=== PATIENT | female | born 1965 | race Caucasian/White ===

== ENCOUNTER 2017-09-11 08:30 | Outpatient (RCR) | payer OTHER, SELFPAY ==
--- NOTE | 2017-08-20 14:26 | HP.OTEVAL ---
Patient's Visit Information ROBEL SANDOVAL is a 52 year old F, referred to Occupational Therapy by BARBARA Araiza.MARBELLA, with a diagnosis of Radius Fx. Date of Evaluation: 08/20/17 Occupational Therapist: Virginia Nam - Subjective Subjective: Pt., Robel Chen, noted that she fell sometime in June prior to while placing glass bulb ornaments away. She noted she put socks under ladder and it slipped from under her. She noted ladder 6 ft and fell head first to hardwood floor. Notes mild concussion from fall and breaking L distal radius. Most is pain is over scar is itching and gets very irritated touching anything. 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 - Pain Left Wrist 3 Pain Intensity Range: 2, 8 - Objective Objective/Observation: Limited ROM and strength. Scar closed but red and tender. Heat to scar appears same as R nonaffected hand. ROM and strength limited at this time. Concerns: Please send over surgical report. Pt. provided picture of x-ray. - ROM Forearm: supination R 0-79, L 0-30 Wrist: flex R 0-84, L 0-46; ext R 0-55, L 0-46 CMC: WFL MP: WFL PIP: WFL DIP: WFL ROM Comments: Rad dev R 0-15, L 0-7. ulnar dev R 0-30, L 0-19 - Strength Sharepoint Manager: R 86, L 34 Lateral Pinch: R 13, L 12 Tripod Pinch: R 14, L 4 Tip-to-Tip Pinch: R 7, L 4 - Edema Wrist: slight edema around ulna - Sensation Sensation Comments: Intact nd WFL; denies numbness and tingling at this time. - DASH-Disabilities of Arm, Shoulder& Hand DASH Sum: 97 - Goals Goal:: Robel Chen to increase B UE strength to 4+/5 for B UE to promote increased UE strength and endurance to return to PLOF. Goal:: Robel chen to increased active supination of L affected hand by 30 degrees to promote increased ROM and strength to be able to manipulate self-care items for hair care as wella s IADLS of taking and holding change 4/5 trials 80-% of the time by d/c. Goal:: Robel Chen to consistently rate pain in L wrist at 0-1/10 pain when completing fx tasks to promote increased (I) and participation with ADl/IADLs by d/c. Goal:: Robel Chen to increase B neonatal nurse practitioner by 30-35 lbs to promote increased neonatal nurse practitioner strength and endurance to be able to complete ADL/IADLs by time of d/c. Goal:: Robel Chen to increased L affected wrist flex/ext to that of R nonaffected hand to promote increased (i) and ability to returnt o PLOF by d/c. Goal:: Robel Chen to be mod I to complete jt protection strategies to promote increasing ability to complete ADL/AIDls by d/c. Goal:: Robel Chen to be (I) to return to all ADl/IADLs to promote increased (I) and ability to return to PLOF with L affected hand and wrist by d/c. - Rehabilitation General Assessment: Pt., Robel Chen, gutierrezvd and noted inital injury occured in June. She noted that she has since had ORIF to L wrist. She is R hand dominant and has compensated but is having increased difficulty completing B hand coordination and manipulation tasks. She noted increased pain in all fx mvmts. She exhibits decreased ROM, strength, and return to PLOF. Rehabilitation Potential: Good - Anticipated Interventions Anticipated Interventions: A/AAROM/PROM, Strengthening, Edema Control, Modalities, Orthoses, Joint Protection/Energy Conservation, Fine Motor Coord/Berto, ADL Training, Caregiver Training, Home Program - Visit Plan Frequency: 2x /Week Duration: 4-6 Weeks General Plan: OT to work on ROM, strength, desensitization techniques, and returning to all ADL/IADLs by d/c. Modalities (no US) to be used as needed to manage pain and promote ROM to ethylbenzene converter helper in returning to PLOF.Edema management techniques as needed. TEXT: Thank you for the opportunity to evaluate your patient. For Medicare and Medicare HMO plans, please review the plan of care and approve it. It will need to be FAXED BACK to us at [phone] for Medicare purposes. Please let me know if there are questions or concerns regarding this plan of care. Physician Signature: Date:
--- NOTE | 2018-04-01 09:58 | HP.OTDCNRP_ITS ---
HP - Discharge Summary - Patient Information ROBEL SANDOVAL was seen in my office for initial evaluation on 08/20/17. The following Plan of Care was established for this patient: Initial Frequency: 2x /Week Initial Duration: 4-6 Weeks Plan: continue POC and potentially start fluidotherapy machine to work on decreasing sensitivity as well as HEP for desenitization protocol. Gave scar gel to wear even without brace on. - Anticipated Interventions Anticipated Interventions: A/AAROM/PROM, Strengthening, Edema Control, Modalities, Orthoses, Joint Protection/Energy Conservation, Fine Motor Coord/ Berto, ADL Training, Caregiver Training, Home Program This patient was last seen in our office 09/11/17. Pertinent comments regarding their Occupational therapy will appear below: last time seen in clinic 09/11/17. Last set of measurements are as follows: ROM pre- traction and MT is as follows: L wrist flexion 0-52, extension 0-45; radial dev 0-14, ulnar dev 0-19; supination 0-35. ROM post MT and traction is as follows: flexion 0-61, ext 0-46, radial dev 0-13 , ulnar 0-14, supination 0-42. Increased crepitus with traction at ulna due to where fx was located. Pain increased from 3 to 5/10 after scar massage. She was to follow up for further sessions and has not returned. She will be d/c' d at this time. At this point I will be discontinuing this patient from occupational therapy. I would be happy to see this patient again in the future if found appropriate by the physician. Thank you! Virginia Nam
== END 2017-09-11 19:00 | disposition home or self-care (01) ==
LOC: OT 08:30
PROVIDERS: Family Provider Internal Medicine; PCP Internal Medicine; Visit Provider Physician Assistant
DX: S52.552D Other extraarticular fracture of lower end of left radius, subsequent encounter for closed fracture with routine healing (principal); S52.572D Other intraarticular fracture of lower end of left radius, subsequent encounter for closed fracture with routine healing
CPT/HCPCS: 97110; 97140; 97166; 97530

== ENCOUNTER 2019-08-16 14:02 | Observation (INO) | payer OTHER, SELFPAY ==
[2019-08-16] VITALS (11 sets, daily range): BP systolic 83–141; BP diastolic 44–92; PULSE 16–66; RESP 16–56; TEMP 36.7–37; O2SAT 94–100; BMI 25.0; BMI 24.1
--- NOTE | 2019-08-16 14:28 | RAD_ITS ---
STUDY: X-RAY CHEST REASON FOR EXAM: Female, 54 years old. SHORTNESS OF BREATH, DIZZINESS, HEADACHE STARTED TODAY. HISTORY OF ASTHMA. TECHNIQUE: PA and lateral views of the chest. COMPARISON: Comparison is made with prior examination dated June 29, 2017. FINDINGS: EKG electrodes are seen. Hyperinflation. The lungs are clear. There is no demonstrated pleural abnormality. Normal size heart. Normal mediastinum and lobo. Normal visualized pulmonary arteries. Normal visualized aortic arch and descending thoracic aorta. Normal visualized thoracic spine. Normal visualized ribs, clavicles, and shoulders. There is no demonstrated abnormality of the visualized soft tissue structures of the upper abdomen. RAD/Chest PA and Lateral IMPRESSION: Normal x-ray examination of the chest. Electronically Signed: Mk Valles, at 15:21 EST , Service support ,
--- NOTE | 2019-08-16 14:28 | EKG12_ITS ---
Test Reason : CP Blood Pressure : / mmHG Vent. Rate : 055 BPM Atrial Rate : 055 BPM P-R Int : 150 ms QRS Dur : 084 ms QT Int : 410 ms P-R-T Axes : 015 066 059 degrees QTc Int : 392 ms Sinus bradycardia Otherwise normal ECG Confirmed by GEORGE TORRES, LINA ([id number]), order editor CATRINA ANN ([id number]) on 08/18/2019 1:47:21 PM Referred By: ELOISA/ Confirmed By:LINA VAZQUEZ MD
[2019-08-16 14:47] LABS: Absolute Lymphocyte Count 1.48 X10^3/uL (0.83-4.51); Absolute Neutrophil Count 4.9 X10^3/uL (2.0-7.7); Basophil# 0.05 X10^3/uL; Basophil% 0.7 % (0-1); Eosinophil# 0.13 X10^3/uL; Eosinophils% 1.8 % (0-5); Hematocrit 40.3 % (37-47); Hemoglobin 13.7 g/dL (12.0-15.0); Lymphocyte # 1.48 X10^3/ul (4.0); Lymphocyte % 20.6 % (19-41); Mean Corpuscular Hgb 31.4 pg (27.0-32.0); Mean Corpuscular Volume 92.4 fL (81-99); Mean Platelet Vol. 10.2 fl (6.2-12.0); Monocyte# 0.61 X10^3/uL; Monocyte% 8.5 % (0-10); NRBC Flagged by Analyzer 0 % (0-5); Neutrophil # 4.89 X10^3/uL (2.7-7.7); Neutrophil % 68.1 % (47-70); Platelet Count 231 K/mm3 (150-450); RBC Distribution Width CV 11.9 % (11.6-14.6); RBC Distribution Width SD 40.2 fl (35.1-43.9); Red Blood Count 4.36 M/mm3 (4.2-5.4); White Blood Count 7.2 K/mm3 (4.4-11.0)
[2019-08-16 15:00] LABS: Anion Gap 5 (5-15); BUN 15 mg/dL (7-18); BUN/Creat Ratio 14.4 RATIO (10-20); Calcium,Total 9.5 mg/dL (8.5-10.1); Chloride 107 mmol/L (98-107); Creatinine, Serum 1.04 mg/dL (0.55-1.02); EST Glomerular Filtration Rate 58 mL/min (>60); Est Glom Filt Rate - Afr Amer 71 mL/min (>60); Estimated Creatinine Clearance 60.93 ml/min; Glucose 110 mg/dL (74-106); Potassium 3.7 mmol/L (3.5-5.1); Sodium Level 139 mmol/L (136-145)
[2019-08-16] MEDS: Aspirin 81 MG TAB.CHEW 324 MG PO (15:13)
--- NOTE | 2019-08-16 15:32 | ED.VIS.CHEST ---
History of Present Illness Chief Complaint: Chest Pain Informant: Patient Narrative: Patient presenting for evaluation secondary to chest pain. Patient is very healthy, very physically active, but states over the course of the last 2 days she has been dealing with chest pain shortness of breath. Patient states that yesterday she was working out on the treadmill, went to a normal speed on the treadmill but then became extremely fatigued very early and was required to slow her speed to walk. Patient states that she was ice skating today, she is a professional senior web services developer. Patient apparently stated that anytime she started exerting herself she would become extremely short of breath to the point where she felt like she was not getting enough air, lightheaded, and nauseous. Patient did state that she had some chest heaviness associated with this. Patient denies any history of hypertension diabetes hyperlipidemia or smoking. She denies any DVT or PE risk factors. She has had a stress test but it was in the distant past. Review of systems otherwise negative. Past Medical History - Allergies and Home Meds Allergies/Adverse Reactions: Allergies Sulfa (Sulfonamide Antibiotics) Allergy (Verified 07/04/17 13:56) Unknown tetracycline Allergy (Verified 07/04/17 13:56) Unknown Primary Care Physician: Jody Perez MD [Primary Care Provider] - Past Medical History: None Smoking Status: Never smoker Review of Systems All systems negative except as indicated General: Denies: Chills, Fever, Sweats Eyes: Denies: Visual changes - bilaterally, Diplopia ENT: Denies: Rhinorrhea, Sore throat Cardiovascular: Reports: Chest pain Respiratory: Denies: Dyspnea, Cough, Dyspnea on exertion Gastrointestinal: Denies: Abdominal pain, Nausea, Vomiting, Diarrhea, Melena, Hematochezia Genitourinary: Denies: Dysuria, Hematuria, Frequency Musculoskeletal: Denies: Back pain, Extremity Pain Skin: Denies: Rash, Wounds Neurological: Denies: Headache, Weakness, Numbness Physical Exam Vital Signs/Narrative: Vital Signs Temp Pulse Resp BP Pulse Ox 08/16/19 15:06 58 L 18 83/44 L 100 08/16/19 14:03 98.3 F 62 18 141/88 H 96 Inital Vital Signs reviewed: Yes General: Well nourished, Well developed, No Acute Distress Head: Normocephalic, Atraumatic Eyes: Perrl, EOMI ENT: Moist mucous membranes, No rhinorrhea Neck: Supple, Nontender Cardiovascular: Regular rate, Regular rhythm, No murmurs Respiratory: No distress, CTA bilaterally, Chest nontender Abdomen: Soft, Nontender, Nondistended, Normal bowel sounds Back: Nontender, Normal Inspection Extremities: Nontender, No edema Skin: Normal color, No rash Neurological: Alert, Oriented x3, Cranial nerves II-XII grossly intact, Normal Strength, Normal Sensation Psychological: Normal affect, Normal Mood Diagnostic/Tx/Re-eval - EKG Initial EKG Interpretation: - - Sinus rhythm of [address] segments normal T waves normal CO and QTc intervals no evidence of acute ischemia or arrhythmia - Medical Decision Making Patient presenting for evaluation secondary to chest pain and shortness of breath. Patient's history sounds very concerning for angina, work-up was obtained. CBC chemistry and troponin were unremarkable.. Lateral chest x-ray by my personal review as well as radiology are unremarkable. EKG shows no ischemic signs. Even though the patient is relatively low risk, she is 54 years old and has a story that is very classically concerning for angina. I believe she requires admission. I will admit the patient under the hospitalist. ED Disposition - Plan for ED Patient: Disposition: [facility] Diagnosis: Exertional angina
--- NOTE | 2019-08-16 15:58 | NURSING ---
117 BLANCA OBS ANGINA
--- NOTE | 2019-08-16 16:19 | PCM.HP.STD ---
Problem List (1) Chest tightness Status: Acute (2) Exercise-induced asthma Status: Chronic History of Present Illness Date of Admission: 08/16/19 Chief Complaint: Chest tightness today The patient is a 54 year old F with history of chronic stable exercise-induced asthma on Singulair came to ER with complaint of chest tightness while skiing. Yesterday patient was on treadmill and she felt fatigue, mild short of breath and tired. Today while skiing she felt chest tightness from right to left along with feeling of lump in throat along with constriction along with dizziness, shortness of breath and sweating. She also felt nauseous and vomited once. She had one loose bowel movement but was not totally liquid watery in consistency. She denies history of coronary artery disease or heart related disorder in first-degree family active. In ED, vital signs normal, heart rate 60/min, blood pressure 134/85. EKG shows sinus bradycardia 55 bpm. No significant change from previous EKG of July 07, 2017. Chest x-ray reported normal. Past Medical History Past Medical History (Chronic Problems): Chronic Problems Exercise-induced asthma (Chronic) Allergies Sulfa (Sulfonamide Antibiotics) Allergy (Verified 07/04/17 13:56) Unknown tetracycline Allergy (Verified 07/04/17 13:56) Unknown Home Medications: Ambulatory Orders Medication Instructions Recorded Escitalopram Oxalate [Lexapro] 20 mg PO QHS 08/16/19 Montelukast [Singulair] 10 mg PO QHS 08/16/19 Smoking Status: Never smoker - *Family History Paternal History Items: No pertinent history Review of Systems Constitutional: Reports: Malaise, Weakness. Denies: Chills, Fever, Weight Change HEENT: Denies: Head Aches, Sinus Congestion, Sinus Drainage Cardiovascular: Reports: Chest Pressure, Chest Tightness. Denies: Chest Pain, Palpitations Respiratory: Reports: Shortness of breath upon exertion. Denies: Cough, Shortness of breath at rest, Sputum production Gastrointestinal: Denies: Abdominal Pain, Nausea, Vomiting Genitourinary: Denies: Dysuria Musculoskeletal: Denies: Joint Pain, Joint Tenderness Skin: Denies: Rash, Wounds Neurological: Denies: Numbness, Tingling, Focal weakness Psychiatric: Denies: Anxiety, Depression, Homicidal Ideations, Suicidal Ideations Hematologic/ Lymphatic: Denies: Easy Bruising, Easy Bleeding VTE Information - Inpt Only VTE Present on Admission: No VTE Mechan Device Prophylaxis: None VTE Pharm Prophylaxis ordered?: Yes Patient Problems: Active and Suspected Problems Exertional angina (Acute) Chest tightness (Acute) - Physical Exam Vitals/I&O's: Vital Signs Temp Pulse Resp BP Pulse Ox 98.3 F 64 16 138/92 H 100 08/16/19 14:03 08/16/19 16:02 08/16/19 16:02 08/16/19 16:02 08/16/19 16:02 Oxygen Delivery Method Room Air Weight: 164 lb 14.492 oz Body Mass Index (BMI) 25.0 General: Alert, Oriented x3, Cooperative HEENT: Atraumatic, PERRLA, EOMI, Normocephalic Oral: No Gingival or Mucosal Lesions/ Ulcerations, Dry Mucosa Neck: Supple, No JVD, Negative Carotid Bruits Lungs: Clear to auscultation, Normal air movement, No rhonchi, No wheeze, No rales Cardiovascular: Regular rate, Regular Rhythm, Normal S1, Normal S2, No murmurs Abdomen: Bowel Sounds Present, Soft, Non Tender, Non-Distended Extremities: No edema, Capillary Refill Less than 3 Seconds Skin: No rashes, No breakdown Musculoskeletal: No Tenderness to Palpation of Joints or Extremities Lymphatic: No Cervical, Supraclavicular, or Inguinal Adenopathy Neurological: Cranial nerves II-XII grossly intact, Deep Tendon Reflexes 2+/4 and Symmetrical, Neuro grossly intact Psych/Mental Status: Normal Affect, Appropriate Laboratory Results 08/16/19 14:15: WBC 7.2, RBC 4.36, Hgb 13.7, Hct 40.3, MCV 92.4, MCH 31.4, MCHC 34.0, RDW Std Deviation 40.2, RDW Coeff of Arjun 11.9, Plt Count 231, MPV 10.2, Immature Gran % (Auto) 0.300, Neut % (Auto) 68.1, Lymph % (Auto) 20.6, [place] % (Auto) 8.5, Eos % (Auto) 1.8, Baso % (Auto) 0.7, Absolute Neuts (auto) 4.9, Absolute Lymphs (auto) 1.48, Nucleated RBC % 0 08/16/19 14:15: Sodium 139, Potassium 3.7, Chloride 107, Carbon Dioxide 27.0, Anion Gap 5, BUN 15, Creatinine 1.04 H, Estim Creat Clear Calc 60.93, Est GFR (MDRD) Af Amer 71, Est GFR (MDRD) Non-Af 58 L, BUN/Creatinine Ratio 14.4, Glucose 110 H, Calcium 9.5, Troponin I < 0.015 Assessment/Plan All Active Problems Exertional angina (Acute) Chest tightness (Acute) The patient is a 54 year old F with history of chronic stable exercise-induced asthma on Singulair came to ER with complaint of chest tightness while skiing. She also felt nauseous and vomited once. She had one loose bowel movement but was not totally liquid watery in consistency. In ED, vital signs normal, heart rate 60/min, blood pressure 134/85. 1. Atypical chest pain/tightness rule out acute coronary syndrome: Possible differential is exercised induced asthma. EKG independently reviewed and shows sinus bradycardia 55 bpm. No significant change from previous EKG of July 07, 2017. Chest x-ray independently reviewed and looks normal. Patient is being admitted in PCU. Serial troponin and repeat EKG. If troponins are negative, treadmill nuclear stress tomorrow morning. If troponins become elevated will need cardiology consult and possible heart cath and this was explained to the patient. 2. Exercise-induced asthma: Patient does not have wheezing but feeling of lump in throat and constriction which may be atypical manifestation of asthma. Patient also feels nervous/weird sensation with albuterol therefore put on ipratropium every 4 hours. Continue Singulair. 3. Mild dehydration: On normal saline 100 mL/h, total of 2 L. Mild anxiety: On escitalopram; continued. 4. DVT prophylaxis, moderate risk: On Lovenox 40 mg subcu daily. Laboratory Results 08/16/19 14:15: WBC 7.2, RBC 4.36, Hgb 13.7, Hct 40.3, MCV 92.4, MCH 31.4, MCHC 34.0, RDW Std Deviation 40.2, RDW Coeff of Arjun 11.9, Plt Count 231, MPV 10.2, Immature Gran % (Auto) 0.300, Neut % (Auto) 68.1, Lymph % (Auto) 20.6, [place] % (Auto) 8.5, Eos % (Auto) 1.8, Baso % (Auto) 0.7, Absolute Neuts (auto) 4.9, Absolute Lymphs (auto) 1.48, Nucleated RBC % 0 08/16/19 14:15: Sodium 139, Potassium 3.7, Chloride 107, Carbon Dioxide 27.0, Anion Gap 5, BUN 15, Creatinine 1.04 H, Estim Creat Clear Calc 60.93, Est GFR (MDRD) Af Amer 71, Est GFR (MDRD) Non-Af 58 L, BUN/Creatinine Ratio 14.4, Glucose 110 H, Calcium 9.5, Troponin I < 0.015 Clinical Impression(s) from Imaging Studies Chest X-Ray 08/16/19 14:28 IMPRESSION: Normal x-ray examination of the chest. Code Visit OBSV E&M: 52971 Initial observation care L3
--- NOTE | 2019-08-16 16:45 | EKG12_ITS ---
Test Reason : Blood Pressure : / mmHG Vent. Rate : 050 BPM Atrial Rate : 050 BPM P-R Int : 176 ms QRS Dur : 086 ms QT Int : 452 ms P-R-T Axes : 062 040 045 degrees QTc Int : 412 ms Sinus bradycardia Otherwise normal ECG When compared with ECG of 16-AUG-2019 17:02, MANUAL COMPARISON REQUIRED, DATA IS UNCONFIRMED Confirmed by KAL STERLING ([id number]), publication editor KHALIDA RODRIGUEZ ([id number]) on 08/19/2019 10:46:30 AM Referred By: Confirmed By:KAL STERLING
[2019-08-16] MEDS: 0.9% Saline Lock 10 ML Syringe IV (17:34)
[2019-08-16] MEDS: 0.9% Normal Saline 1,000 ML 100 ML IV (17:34)
[2019-08-16] MEDS: Ipratropium 0.5 MG/2.5 ML SOLUTION INHALATION (19:45)
[2019-08-16] MEDS: Acetaminophen 325 MG Tablet 650 MG PO (19:46)
[2019-08-16] MEDS: oxyCODONE 5 MG Tablet PO (21:29)
[2019-08-16] MEDS: Montelukast 10 MG Tablet PO (21:29)
[2019-08-16] MEDS: Escitalopram Oxalate 20 MG Tablet PO (21:29)
[2019-08-17 02:59] VITALS: PULSE 47
[2019-08-17 03:30] VITALS: BP 114/54; PULSE 55; RESP 14; TEMP 36.8; O2SAT 96
[2019-08-17] MEDS: 0.9% Normal Saline 1,000 ML 100 ML IV (03:33)
[2019-08-17] MEDS: Aspirin E.C. 81 MG Tablet PO (05:04)
[2019-08-17 05:06] VITALS: BP 101/56; PULSE 50; RESP 14; TEMP 36.9
--- NOTE | 2019-08-17 05:55 | EKG12_ITS ---
Test Reason : Blood Pressure : / mmHG Vent. Rate : 060 BPM Atrial Rate : 060 BPM P-R Int : 168 ms QRS Dur : 078 ms QT Int : 414 ms P-R-T Axes : 007 019 040 degrees QTc Int : 414 ms Normal sinus rhythm Normal ECG When compared with ECG of 07-JUL-2017 07:03, No significant change was found Confirmed by KAL STERLING ([id number]), primer expeditor and drier KHALIDA RODRIGUEZ ([id number]) on 08/19/2019 10:47:18 AM Referred By: BLANCA Confirmed By:KAL STERLING
[2019-08-17 06:55] LABS: Cholesterol 195 mg/dL (200); High Density Lipoprotein 61 mg/dL; Triglycerides 102 mg/dL; Very Low Density Lipoprotein 20 mg/dL (5-40)
[2019-08-17 07:00] VITALS: PULSE 50
[2019-08-17 09:55] VITALS: BP 111/68; PULSE 63; RESP 16; TEMP 36.7; O2SAT 96
--- NOTE | 2019-08-17 11:36 | STRESSREP ---
Stress Test Report Date: 08-17-2019 Procedure: Exercise tolerance test/imaging study Indications: Chest pain; shortness of breath/dyspnea Consent: Per the patient Procedure: The patient exercised on a Jaziel protocol for 10 minutes and 45 seconds completing Stage III and 1 minute and 45 seconds of Stage IV achieving a peak heart rate of 153 bpm (93 % predicted maximal heart rate) with a peak blood pressure 138/82 mmHg and a peak MET capacity of 12 METs. The baseline ECG demonstrated sinus bradycardia. The peak exercise ECG demonstrated utba-bo-[id number] nonspecific ST segment variability. There were no cardiac dysrhythmias pretest, during exercise, or recovery. The functional capacity was considered good. There was no complaint of chest discomfort during exercise or recovery. The examination was discontinued secondary to fatigue. Impression: 1. Technically adequate (percent predicted maximal heart rate greater than 85%) exercise tolerance test 2. Peak exercise ECG with quli-hw-abah nonspecific ST segment variability 3. There were no cardiac dysrhythmias pretest, during exercise, or recovery 4. Nuclear images pending Myocardial perfusion imaging study: Technique: The patient was injected with 11.0 mCi of technetium 99m Cardiolite and subsequently rest SPECT Cardiolite nuclear imaging was obtained in the horizontal long, vertical long, and short axis views. The patient exercised on a Jaziel protocol for 10 minutes and 45 seconds completing Stage III and 1 minute and 45 seconds of Stage IV achieving a peak heart rate of 153 bpm (93 % predicted maximal heart rate) with a peak blood pressure 138/82 mmHg and a peak MET capacity of 12 METs. The patient was injected with 34.0 mCi of technetium 99m Cardiolite and subsequently stress SPECT Cardiolite nuclear imaging was obtained in the horizontal long, vertical long, and short axis views. A gated Cardiolite study at peak stress was obtained. Interpretation: Rest and stress SPECT Cardiolite nuclear imaging status post realignment, normalization, and attenuation correction, demonstrates the appearance of relative uniform tracer uptake and myocardial perfusion appearing within normal limits. There is end systolic thickening and brightening. The gated Cardiolite study demonstrates myocardial thickening and inward wall motion. The reported LVEF is 75 %. Impression: 1. Rest and stress SPECT Cardiolite nuclear imaging demonstrate relative uniform tracer uptake and myocardial perfusion appearing within normal limits. 2. The gated Cardiolite study reports an LVEF of 75 %. This note was generated with [employer] guard unlimited software. It may contain incorrect words, spelling, and punctuation that were not noted in checking the note before signing.
--- NOTE | 2019-08-17 13:21 | DCINST_ITS ---
- Discharge Diagnoses Current Active Problems: Current Active and Chronic Problems Exertional angina (Acute) Chest tightness (Acute) Exercise-induced asthma (Chronic) You will use the following diet at home:: Cardiac Your food should be the consistency of: Regular Your liquids should be the consistency of: Regular/Thin Discharge Activity: Return to Normal Activity Weight Bearing Status: Weight bearing as tolerated Call your doctor if you observe: Fever of 101 or Higher, Shortness of breath, Chest pain Instructions: Angina, CHEST PAIN, NonCardiac, Understanding Asthma, Understanding Asthma Triggers Allergies/Adverse Reactions: Allergies Sulfa (Sulfonamide Antibiotics) Allergy (Verified 08/16/19 17:27) Unknown family history of hives tetracycline Allergy (Verified 08/16/19 17:27) Unknown family history of Az's Benedicto's syndrome Medications to take at Discharge Escitalopram Oxalate [Lexapro] 20 mg PO QHS 08/16/19 Montelukast [Singulair] 10 mg PO QHS 08/16/19 Primary Care Physician: Jody Perez MD [Primary Care Provider] - Please follow up with your Primary Care Physician in: one week Test Results: Test results from this visit will be discussed in further detail at your follow- up appointment, if applicable. Please Follow Up With: Jerry Chambers DO When: 3-4 weeks to establish pulmonology care Proposed Discharge Date: 08/17/19
--- NOTE | 2019-08-17 16:07 | DS.PCM_ITS ---
Discharge Date and Diagnosis Date of Admission: 08/16/19 Date of Discharge: 08/17/19 - Primary Discharge Diagnosis chest pain - Secondary Discharge Diagnosis Chronic Problems Exercise-induced asthma (Chronic) Hospital Course and Treatment Imaging Results: Diagnostic Data Chest X-Ray 08/16/19 14:28 IMPRESSION: Normal x-ray examination of the chest. Electronically Signed: Mk Valles, at 15:21 EST , Service support , Operations: None Procedures: Stress test Summary of Care Provided: The patient is a 54 year old F with a PMH of chronic exercise induced asthma. She was admitted through the ED on 08/16/2019 with a complaint of chest tightness whilst skiing and doing figure skating. She also had assisted fall to seek, shortness of breath and feeling tired. She also says she had a feeling of a lump in her throat along with constriction and also had some dizziness and increased sweating and also nausea. Never had such symptoms before. She does not have any history of heart disease. She did use her inhaler when symptoms occurred because she did not have it with her and she also states that her albuterol inhaler usually does not work. EKG showed mild sinus bradycardia with heart rate of [address] acute [address] changes. She was admitted to be managed for chest pain rule out ACS. She has stress test on 08/17/2019 which was negative. Symptoms were therefore thought to be likely due to exercise-induced bronchospasm. Patient stated that albuterol does not work for her and so she does not even use it and thinks that the Singulair is what is working for her. I did counselor/art therapist patient that she does need short acting rescue inhaler for onset of symptoms. I discussed with Dr. Chambers, pulmonology informally on phone about other options for short acting inhaler; per the discussion, albuterol would be the best choice but patient stated that it does not work for her and she has not tried any of this. Patient was referred to follow-up with Dr. Chambers on outpatient basis for close follow-up of exercise-induced asthma. She was also counseled to keep her albuterol inhaler with her at all times and use it for onset of symptoms to check for relief. Patient seen and examined prior to discharge. She had no complaints. Review of systems otherwise negative. Labs and vitals reviewed. Home medication reviewed and reconciled. [] - Physical Exam Vitals/I&O's: Vital Signs Temp Pulse Resp BP Pulse Ox 98.0 F 63 16 111/68 96 08/17/19 09:55 08/17/19 09:55 08/17/19 09:55 08/17/19 09:55 08/17/19 09:55 Oxygen Delivery Method Room Air Weight: 158 lb 11.725 oz Body Mass Index (BMI) 24.1 Intake and Output for Last 24 Hours 08/15/19 08/16/19 08/17/19 23:59 23:59 23:59 Intake Total 890 / 890 1253.33 / 1253.33 Balance 890 / 890 1253.33 / 1253.33 General: Alert, Oriented x3, Cooperative HEENT: Atraumatic, PERRLA, EOMI, Normocephalic Oral: Moist Mucosa Neck: Supple, No JVD, Negative Carotid Bruits Lungs: Clear to auscultation, Normal air movement, No rhonchi, No wheeze, No rales Cardiovascular: Regular rate, Regular Rhythm, Normal S1, Normal S2, No murmurs Abdomen: Bowel Sounds Present, Soft, Non Tender, Non-Distended, No Hepato- splenomegaly Extremities: No clubbing, No cyanosis, No edema, Capillary Refill Less than 3 Seconds Skin: No rashes, No breakdown Musculoskeletal: No Tenderness to Palpation of Joints or Extremities Lymphatic: No Cervical, Supraclavicular, or Inguinal Adenopathy Neurological: Cranial nerves II-XII grossly intact, Neuro grossly intact, Motor Exam 5/5 strength throughout Psych/Mental Status: Normal Affect, Appropriate, Alert and oriented to time, place, person, mood and affect Laboratory Results 08/16/19 17:50: Troponin I < 0.015 08/16/19 20:30: Troponin I < 0.015 08/17/19 05:40: Triglycerides 102, Cholesterol 195, LDL Cholesterol 114, VLDL Cholesterol 20, HDL Cholesterol 61, TSH 2.10 Discharge Diet: No Restrictions Discharge Activity: Return to Normal Activity Weight Bearing Status: Weight bearing as tolerated Call your doctor if you observe: Fever of 101 or Higher, Shortness of breath, C hest pain Home Medications: Medications to take at Discharge Escitalopram Oxalate [Lexapro] 20 mg PO QHS 08/16/19 Montelukast [Singulair] 10 mg PO QHS 08/16/19 Primary Care Physician: Jody Perez MD [Primary Care Provider] - Please follow up with your Primary Care Physician in: one week Please Follow Up With: Jerry Chambers DO When: 3-4 weeks to establish pulmonology care Patient Instructions: Understanding Asthma, Understanding Asthma Triggers, Angina, CHEST PAIN, NonCardiac Disposition: Home Minutes spent on discharge:: 35 Patient Condition:: Stable Medical Necessity - Tobacco Use Smoking Status: Never smoker Meaningful Use Info Meaningful Use Diagnoses (Choose all that apply): None applicable Code Visit OBSV E&M: 99733 Observation care discharge
== END 2019-08-17 13:22 | disposition home or self-care (01) ==
LOC: ED 15:35 → PCU 16:05
PROVIDERS: Admitting Provider Internal Medicine; Emergency Provider Emergency Medicine; PCP Internal Medicine; Visit Provider Student in an Organized Health Care Education/Training Program
DX: J45.990 Exercise induced bronchospasm (principal); Z23 Encounter for immunization; R00.1 Bradycardia, unspecified; E86.0 Dehydration; F41.9 Anxiety disorder, unspecified; Z79.899 Other long term (current) drug therapy
CPT/HCPCS: 36415; 71046; 78452; 80048; 80061; 84443; 84484; 85025; 93005; 93017; 94640; 96360; 96361; 99218; 99285; A9500; J7030; 90686; A4216; G0378